=== PATIENT | male | born 1990 | race Caucasian/White ===

== ENCOUNTER → 2017-03-07 | Outpatient (CLI) | payer OTHER ==
--- NOTE | ~2017-03-07 | EKG ---
PATIENT: CHIKA BARNARD UNIT #: [id number] Ventricular Rate: 59 BPM Atrial Rate: 59 BPM P-R Interval: 184 ms QRS Duration: 82 ms Q-T Interval: 380 ms QTC Calculation(Bezet): 376 ms P [place]: 34 degrees Calculated R [place]: 30 degrees Calculated T [place]: 36 degrees Diagnosis Line: Sinus bradycardia Diagnosis Line: Otherwise normal ECG Diagnosis Line: No previous ECGs available Diagnosis Line: Confirmed by BRENDAN SANDERS MD ([id number]) on 03/10/2017 Diagnosis Line: 3:59:23 PM INTERPRETING MD: MARILYN HITCHCOCK
== END | disposition home or self-care (01) ==
LOC: CEKG 14:50
DX: R07.89 Other chest pain (principal)
CPT/HCPCS: 93005